=== PATIENT | female | born 2000 | race Two or more races ===

== ENCOUNTER → 2025-01-25 | Outpatient (CLI) | payer OTHER, SELFPAY ==
--- NOTE | 2025-01-25 11:17 | XR_ITS ---
Examination: Shoulder, right, 3 views Technique: Shoulder AP internal rotation, AP external rotation, Y view shoulder, 3 views Exam date and time : January 25, 2025, 11:21 a.m. INDICATIONS: Injury to the shoulder January 13, 2025 with shoulder pain. FINDINGS: No shoulder fracture or dislocation No AC joint separation IMPRESSION: No shoulder fracture or dislocation
== END | disposition home or self-care (01) ==
LOC: CDIM 11:07
PROVIDERS: Referring Provider Nurse Practitioner Family; Visit Provider Nurse Practitioner Family
DX: S46.811A Strain of other muscles, fascia and tendons at shoulder and upper arm level, right arm, initial encounter (principal); X58.XXXA Exposure to other specified factors, initial encounter
CPT/HCPCS: 73030